=== PATIENT | female | born 1980 | race African-American/Black ===

== ENCOUNTER 2018-03-12 14:57 | Emergency (ER) | payer MEDICAID, OTHER ==
[~2018-03-12] VITALS: Ht 172.7 cm; Wt 97.0 kg
[2018-03-12 18:33] VITALS: BP 127/71
== END 2018-03-12 18:34 | disposition home or self-care (01) ==
LOC: ER 17:17
DX: S00.83XA Contusion of other part of head, initial encounter (principal); S20.20XA Contusion of thorax, unspecified, initial encounter; R03.0 Elevated blood-pressure reading, without diagnosis of hypertension; V43.62XA Car passenger injured in collision with other type car in traffic accident, initial encounter; W22.12XA Striking against or struck by front passenger side automobile airbag, initial encounter; Y93.89 Activity, other specified; Y92.488 Other paved roadways as the place of occurrence of the external cause
CPT/HCPCS: 71101; 81025; 99284

== ENCOUNTER 2018-03-16 12:45 | Emergency (ER) | payer OTHER ==
[~2018-03-16] VITALS: Ht 172.7 cm; Wt 98.0 kg
[2018-03-16 12:49] VITALS: BP 137/73
== END 2018-03-16 15:01 | disposition left against medical advice (07) ==
LOC: ER 12:45
DX: Z53.21 Procedure and treatment not carried out due to patient leaving prior to being seen by health care provider (principal)